=== PATIENT | female | born 1955 | race Caucasian/White ===

== ENCOUNTER 2018-08-18 14:30 | Inpatient (IN) | payer BC ==
--- NOTE | 2018-08-18 14:37 | PDOC ---
History of Present Illness - General Chief Complaint: Pain Stated Complaint: ABD PAIN, FEVER Time Seen by Provider: 08/18/18 14:36 Past History - Past Medical History Allergies/Adverse Reactions: Allergies Allergy/AdvReac Type Severity Reaction Status Date / Time No Known Allergies Allergy Verified 08/18/18 14:34 Home Medications: Ambulatory Orders NK [No Known Home Medication] 01/11/16 COPD: No - Surgical History Abdominal Surgery: Yes (hernia repair) Appendectomy: Yes Cholecystectomy: Yes - Suicide/Smoking/Psychosocial Hx Smoking History: Never smoked Have you smoked in the past 12 months: No Information on smoking cessation initiated: No Hx Alcohol Use: No Drug/Substance Use Hx: No Substance Use Type: None *Physical Exam - Vital Signs Last Vital Signs Temp Pulse Resp BP Pulse Ox 102.9 F H 118 H 18 155/87 99 08/18/18 14:30 08/18/18 14:30 08/18/18 14:30 08/18/18 14:30 08/18/18 14:30 *DC/Admit/Observation/Transfer - Discharge Dispostion Condition at time of disposition: Stable - Referrals Referrals: Cristopher Richards MD [Primary Care Provider] - - Patient Instructions - Post Discharge Activity
[2018-08-18] MEDS ORDERED: ACETAMINOPHEN 1000 MG/100 ML VIAL (NON FORMULARY) IVPB ONE ×2 (15:22→20:10)
[2018-08-18] MEDS ORDERED: ONDANSETRON 4 MG/2 ML VIAL IVPB ONE (15:22)
[2018-08-18] MEDS ORDERED: SODIUM CHLORIDE 1,000 ML IV STA (15:22)
[2018-08-18] MEDS ORDERED: ONDANSETRON 4 MG/2 ML VIAL ONE (15:25)
[2018-08-18] MEDS ORDERED: ACETAMINOPHEN INJECTION 100 ML IVPB ONE (15:25)
[2018-08-18 15:31] LABS: BASO % 0.6 % (0-2.0); EOS % 1.9 % (0-4.5); HEMATOCRIT 38.7 % (32.4-45.2); HEMOGLOBIN 12.7 GM/dl (10.7-15.3); LYMPH % 11.5 % (8-40); MCH 27.3 pg (25.7-33.7); MCHC 32.9 g/dl (32.0-36.0); MEAN CELL VOLUME 83.1 fl (80-96); MEAN PLT VOLUME 9.8 fl (7.5-11.1); MONO % 5.7 % (3.8-10.2); NEUT % 80.3 % (42.8-82.8); PLATELET COUNT 212 K/MM3 (134-434); RBC 4.65 M/mm3 (3.60-5.2); WHITE BLOOD COUNT 8.8 K/mm3 (4.0-10.8)
[2018-08-18 15:33] LABS: INR 1.11 (0.82-1.09); PROTHROMBIN TIME (PATIENT) 12.4 SEC (10.2-13.0)
[2018-08-18 16:31] LABS: ALBUMIN 3.7 g/dl (3.4-5.0); BLOOD UREA NITROGEN 13.4 mg/dL (7-18); CREATININE 0.9 mg/dL (0.55-1.3); POTASSIUM 3.9 mmol/L (3.5-5.1); TOT PROT 7.2 g/dl (6.4-8.2)
[2018-08-18] MEDS ORDERED: PIPERACILLIN/TAZOB 3.375 GM 3.375 GM in DEXTROSE 5%-WATER - 50 ML IVPB ONE (18:29)
[2018-08-18] MEDS ORDERED: PIPERACILLIN/TAZOBACTAM 3.375 GM VIAL IVPB ONE (18:32)
--- NOTE | 2018-08-18 18:32 | PDOC ---
Documentation entered by Kyung Srivastava SCRIBE, acting as scribe for Rio Orellana MD. Rio Orellana MD: This documentation has been prepared by the Atif rivas Brenda, SCRIBE, under my direction and personally reviewed by me in its entirety. I confirm that the documentation accurately reflects all work, treatment, procedures, and medical decision making performed by me. History of Present Illness - General Chief Complaint: Pain Stated Complaint: ABD PAIN, FEVER Time Seen by Provider: 08/18/18 14:36 History Source: Patient Exam Limitations: No Limitations - History of Present Illness Initial Comments: 08/18/18 15:21 The patient is a 63 year old female with a significant PMH of diverticulosis who presents to the emergency department with 3 days of lower abdominal pain. Patient reports she has developed sharp diffuse lower abdominal pain, that she described as something bursting inside of her. Patient also states having an episode last night of lower quadrant pain that woke her up out of her sleep with associated diaphoresis. Patient notes her abdominal pain is worsened during bowel movements. Patient also reports loose stools and states her last bowel movement was an hour prior to arrival to ED. She reports having a fever of 104.7 last night, where it decreased to 102.9 earlier today.. She also reports mild nausea when she smells greasy food. Patient reports taking 3 advils with slight relief of present symptoms. The patient denies chest pain, shortness of breath, headache and dizziness. Denies Vomiting, hematochezia and constipation.Denies dysuria, frequency, urgency and hematuria. Denies vaginal bleeding or discharge. Allergies: NKA Past surgical history: Cholecystectomy, appendectomy and . Social history: Denies history of tobacco and alcohol use PCP: Dr. Edson Richards Past History - Past Medical History Allergies/Adverse Reactions: Allergies Allergy/AdvReac Type Severity Reaction Status Date / Time No Known Allergies Allergy Verified 08/18/18 14:34 Home Medications: Ambulatory Orders NK [No Known Home Medication] 01/11/16 COPD: No - Surgical History Abdominal Surgery: Yes (hernia repair) Appendectomy: Yes Cholecystectomy: Yes - Suicide/Smoking/Psychosocial Hx Smoking History: Never smoked Have you smoked in the past 12 months: No Information on smoking cessation initiated: No Hx Alcohol Use: No Drug/Substance Use Hx: No Substance Use Type: None Review of Systems - Review of Systems Able to Perform ROS?: Yes Comments:: 08/18/18 15:21 CONSTITUTIONAL: + Fever + Diaphoresis Absent: generalized weakness, malaise, loss of appetite HEENT: Absent: rhinorrhea, nasal congestion, throat pain, throat swelling, difficulty swallowing, mouth swelling, ear pain, eye pain, visual Changes CARDIOVASCULAR: Absent: chest pain, syncope, palpitations, irregular heart rate, lightheadedness , peripheral edema RESPIRATORY: Absent: cough, shortness of breath, dyspnea with exertion, orthopnea, wheezing, stridor, hemoptysis GASTROINTESTINAL: +Abdominal pain + Nausea Absent: vomiting, constipation, melena, hematochezia GENITOURINARY: Absent: dysuria, frequency, urgency, hesitancy, hematuria, flank pain, genital pain MUSCULOSKELETAL: Absent: myalgia, arthralgia, joint swelling SKIN: Absent: rash, itching, pallor HEMATOLOGIC/IMMUNOLOGIC: Absent: easy bleeding, easy bruising, lymphadenopathy, frequent infections ENDOCRINE: Absent: unexplained weight gain, unexplained weight loss, heat intolerance, cold intolerance NEUROLOGIC: Absent: headache, focal weakness or paresthesias, dizziness, unsteady gait, seizure, mental status changes, bladder or bowel incontinence PSYCHIATRIC: Absent: anxiety, depression, suicidal or homicidal ideation, hallucinations. All Other Systems: Reviewed and Negative *Physical Exam - Vital Signs Last Vital Signs Temp Pulse Resp BP Pulse Ox 102.9 F H 118 H 18 155/87 99 08/18/18 14:30 08/18/18 14:30 08/18/18 14:30 08/18/18 14:30 08/18/18 14:30 - Physical Exam Comments: 08/18/18 15:21 GENERAL: + Mild to moderate distress due to abdominal pain + Temperature of 102.9 F Well developed, well nourished. Awake and alert. HEENT: Normocephalic, atraumatic. PERRLA, EOMI. No conjunctival pallor. Sclera are non- icteric. Moist mucous membranes. Oropharynx is clear. NECK: Supple. Full ROM. No JVD. Carotid pulses 2+ and symmetric, without bruits. No thyromegaly. No lymphadenopathy. CARDIOVASCULAR:+ Tachycardia at rate of 118 + Blood pressure at 155/87 Regular rhythm. No murmurs, rubs, or gallops. Distal pulses are 2+ and symmetric. PULMONARY: No evidence of respiratory distress. Lungs clear to auscultation bilaterally. No wheezing, rales or rhonchi. Normal respiratory rate and oxygen saturation ABDOMINAL: +Mild abdominal distention + mild to moderate tenderness to palpation in lower abdominal and pelvis, both left and right lower quadrants + Suggestion of guarding but no rebound tenderness Soft. No organomegaly. Normoactive bowel sounds. MUSCULOSKELETAL Normal range of motion at all joints. No bony deformities or tenderness. No CVA tenderness. EXTREMITIES: No cyanosis. No clubbing. No edema. No calf tenderness. SKIN: Warm and dry. Normal capillary refill. No rashes. No jaundice. NEUROLOGICAL: Alert, awake, appropriate. Cranial nerves 2-12 intact. No deficits to light touch and temperature in face, upper extremities and lower extremities. No motor deficits in the in face, upper extremities and lower extremities. Normoreflexic in the upper and lower extremities. Normal speech. Toes are down- going bilaterally. Gait is normal without ataxia. PSYCHIATRIC: Cooperative. Good eye contact. Appropriate mood and affect. ED Treatment Course - LABORATORY CBC & Chemistry Diagram: 08/18/18 15:00 08/18/18 15:00 - RADIOLOGY Radiology Studies Ordered: Category Date Time Status CHEST X-RAY PORTABLE* [RAD] Stat Radiology 08/18/18 14:38 Ordered Radiograph Interpretation: 08/18/18 15:57 RAD/CHEST X-RAY Impression: No acute chest pathology. Reported by: Tam Adams MD 08/18/18 18:25 CT ABDOMEN AND PELVIS WITH IV CONTRAST FINDINGS: Lower Chest: Within normal limits. Abdomen: Liver:: Moderate degree hepatic steatosis. Bile Ducts: Within normal limits. Gallbladder:: Within normal limits. Pancreas:: Within normal limits. Spleen:: Within normal limits. Adrenals: Within normal limits. Kidneys: No evidence of hydronephrosis or nephrolithiasis. Incidental note is made of a 3.2 x 2.3 cm ill-defined hypoattenuating lesion arising from the right kidney, likely represents a renal cyst. However, recommend further evaluation with dedicated renal ultrasound and/or renal protocol renal MRI to exclude neoplastic process. Stomach:: Small sliding hiatal hernia. Bowel:: Acute diverticulitis of the distal descending/sigmoid colon without evidence of pericolonic fluid collection or abscess at this time. Recommend follow-up to resolution to exclude underlying mass. No evidence of small bowel obstruction or mass. The appendix is not confidently identified. However, there is no secondary inflammatory changes in the right lower quadrant near the cecum to suggest acute appendicitis. Pelvis: Reproductive Organs: Within normal limits. Bladde: Within normal limits. Vessels: Aorta: Within the normal limits without aneurysm or dissection. Retroperitoneum: Within normal limits. Bones: : No suspicious osseous lesions. Reported by: Imaging taxation inspector Medical Decision Making - Medical Decision Making 08/18/18 14:53 Patient with lower abdominal pain for 3 days, temperature to 104 last night, persistent fever today. No appreciable nausea. No vomiting. Normal bowel movements today. Holding down food and fluids without difficulty. No urinary tract symptoms or vaginal bleeding/discharge. Normal PERSONAL CONSULTANT exam by her mail technician 2 weeks ago. Prior surgery including cholecystectomy, appendectomy, and the drainage of the renal cyst on the right. All of these many years ago. No [place] illnesses. No home medications. Examination with diffuse lower abdominal tenderness, suggestion of guarding, but no rebound. Most likely is acute diverticulitis, possibly with perforation or abscess, or bowel obstruction secondary to prior surgeries Laboratories and imaging studies, surgical consultation as dictated by findings. 08/18/18 16:56 CBC, chemistries, and urinalysis show no significant abnormalities. Specifically , the white count is 8.8. Electrolytes, LFTs are normal. 08/18/18 18:30 CT exam shows acute diverticulitis left lower quadrant, no abscess or perforation is evident. However, with the fever to 104 last night, 102 today, distended abdomen, and suggestion of guarding, patient will be admitted for close observation and intravenous antibiotics. PCP Dr. Richards contacted by phone. Case was discussed. Recommends admission to the hospitalist service with surgical consultation The hospitalist contacted. Intravenous antibiotics begun. Surgical consultation Dr. Castellanos. Patient clinically and hemodynamically stable at present. Pain is controlled. *DC/Admit/Observation/Transfer Diagnosis at time of Disposition: Acute diverticulitis - Discharge Dispostion Decision to Admit order: Yes - Referrals Referrals: Cristopher Richards MD [Primary Care Provider] - - Patient Instructions - Post Discharge Activity
[2018-08-18] MEDS ORDERED: SODIUM CHLORIDE 1,000 ML IV SCH (18:45)
--- NOTE | 2018-08-18 18:46 | CONSULT ---
Consult Consult Specialty:: General Surgery Reason for Consultation:: acute diverticulitis - History of Present Illness Chief Complaint: abdominal pain History of Present Illness: 63 yo female PMH obesity, diverticulosis who presents to the emergency department with 3 days of lower abdominal pain described as sharp. Patient reported abdominal pain was worse during bowel movements. Patient also reports loose stools and states her last bowel movement was an hour prior to arrival to ED. She reports she had a fever of 104.7 last night, where it decreased to 102.9 earlier today. She also reports mild nausea when she smells greasy food. Patient reports taking 3 advils with slight relief of present symptoms. She denied chest pain, shortness of breath, headache, dizziness, vomiting, hematochezia and constipation. UA was negative. She has tachycardia and BP is slightly elevated. CT scan of abdomen demonstrataed acute diverticulitis. She was given a dose of IV Tylenol which improved her abdominal pain and IV zosyn. She is currently NPO and IV fluids. We were called to assess. - History Source History Provided By: Patient Limitations to Obtaining History: No Limitations - Past Medical History Gastrointestinal: Yes: Diverticulitis Additional Medical History: obesity - Alcohol/Substance Use Hx Alcohol Use: No - Smoking History Smoking history: Never smoked Have you smoked in the past 12 months: No - Social History Place of : [facility] History of Recent Travel: No Home Medications - Allergies Allergies/Adverse Reactions: Allergies Allergy/AdvReac Type Severity Reaction Status Date / Time No Known Allergies Allergy Verified 08/18/18 14:34 - Home Medications Home Medications: Ambulatory Orders NK [No Known Home Medication] 01/11/16 Review of Systems - Review of Systems Constitutional: reports: Fever. denies: Chills Eyes: denies: Blind Spots, Photophobia HENT: denies: Difficult Swallowing, Ocular Prosthesis Neck: denies: Lumps, Pain on Movement, Swollen Glands Cardiovascular: denies: Chest Pain, Palpitations Respiratory: denies: Cough, SOB Gastrointestinal: reports: Abdominal Pain, Bloating, Constipation. denies: Diarrhea Genitourinary: denies: Discharge, Dysuria Breasts: reports: No Symptoms Reported. denies: Pain Musculoskeletal: denies: Muscle Cramps, Muscle Weakness Integumentary: denies: Pallor, Pruritis Neurological: denies: Seizure, Syncope Endocrine: denies: Unexplained Weight Gain, Unexplained Weight Loss Hematology/Lymphatic: denies: Easily Bruised, Excessive Bleeding Psychiatric: denies: Anxiety, Depression Physical Exam Vital Signs: Vital Signs Temperature 98.8 F 08/18/18 16:29 Pulse Rate 82 08/18/18 16:29 Respiratory Rate 16 08/18/18 16:29 Blood Pressure 112/75 08/18/18 16:29 O2 Sat by Pulse Oximetry (%) 99 08/18/18 16:29 Constitutional: Yes: Well Nourished, No Distress, Calm, Obese Eyes: Yes: Conjunctiva Clear, EOM Intact HENT: Yes: Atraumatic, Normocephalic Neck: Yes: Supple, Trachea Midline Cardiovascular: Yes: Regular Rate and Rhythm, S1, S2 Respiratory: Yes: Regular, CTA Bilaterally Gastrointestinal: Yes: Normal Bowel Sounds, Soft, Tenderness (LLQ), Tenderness, Rebound. No: Palpable Mass, Pulsatile Mass, Rectal Bleeding, Tenderness, Epigastrium ...Rectal Exam: Yes: Sphincter Tone Normal. No: Erythema, Hemorrhoids/External Renal/: No: CVA Tenderness - Left, CVA Tenderness - Right Breast(s): No: Gynecomastia, Nipple Inversion Extremities: No: Cool, Cyanosis Edema: No Peripheral Pulses WNL: Yes Neurological: Yes: Alert, Oriented Psychiatric: Yes: Alert, Oriented Labs: CBC, BMP 08/18/18 15:00 08/18/18 15:00 Imaging - Results Cat Scan: Report Reviewed, Image Reviewed (uncomplicated sigmoid diverticulitis and inflamation without abscess) Problem List - Problems (1) Sigmoid diverticulitis Assessment/Plan: 63yo female with first episode of acute sigmoid diverticulitis uncomplicated NPo and IVF hydration IV antibiotics per ID adequat analgesia advance diet as tolerated GI followup for colonoscopy in 6-8 weeks post episode Will follow periperhally Thank you for the opportunity to participate in the care of this patient. Code(s): K57.32 - DVTRCLI OF LG INT W/O PERFORATION OR ABSCESS W/O BLEEDING (2) Abdominal pain in female Code(s): R10.9 - UNSPECIFIED ABDOMINAL PAIN (3) Fever and chills Code(s): R50.9 - FEVER, UNSPECIFIED (4) Acute diverticulitis of intestine Code(s): K57.92 - DVTRCLI OF INTEST, PART UNSP, W/O PERF OR ABSCESS W/O BLEED
[2018-08-18] MEDS ORDERED: PIPERACILLIN/TAZOBACTAM 2.25 GM VIAL IVPB ONE (20:42)
[2018-08-18] MEDS ORDERED: DEXTROSE 5%-WATER - 50 ML IVPB ONE (20:42)
[2018-08-18] MEDS ORDERED: PIPERACILLIN/TAZOB 2.25 GM 2.25 GM in DEXTROSE 5%-WATER - 50 ML IVPB SCH (21:00)
[2018-08-18 21:10] VITALS: BMI 31.8
--- NOTE | 2018-08-18 21:11 | HP ---
CHIEF COMPLAINT: abdominal pain to lower quadrant for 3 days associated with nausea and fever PCP:Dr. Richards HISTORY OF PRESENT ILLNESS: This is a 63 year old female with a past medical history of diverticulosis who presents to the emergency department with 3 days of lower abdominal pain described as sharp. Patient reported abdominal pain was worse during bowel movements. Patient also reports loose stools and states her last bowel movement was an hour prior to arrival to ED. She reports she had a fever of 104.7 last night, where it decreased to 102.9 earlier today. She also reports mild nausea when she smells greasy food. Patient reports taking 3 advils with slight relief of present symptoms. She denied chest pain, shortness of breath, headache, dizziness, vomiting, hematochezia and constipation. UA was negative. She has tachycardia and BP is slightly elevated. CT scan of abdomen demonstrataed acute diverticulitis. She was given a dose of IV Tylenol which improved her abdominal pain and IV zosyn. She is currently NPO and IV fluids NS at 75cc/hr are infusing. Recent Travel: denies PAST MEDICAL HISTORY: diverticulosis PAST SURGICAL HISTORY: [id number] Appendectomy 15 years ago Social History: Smoking:denies Alcohol:denies Drugs: denies Family History:noncontributory Allergies No Known Allergies Allergy (Verified 08/18/18 14:34) HOME MEDICATIONS: Home Medications Medication Instructions Recorded NK [No Known Home Medication] 01/11/16 REVIEW OF SYSTEMS CONSTITUTIONAL: Absent: fever, chills, diaphoresis, generalized weakness, malaise, loss of appetite, weight change HEENT: Absent: rhinorrhea, nasal congestion, throat pain, throat swelling, difficulty swallowing, mouth swelling, ear pain, eye pain, visual changes CARDIOVASCULAR: Absent: chest pain, syncope, palpitations, irregular heart rate, lightheadedness , peripheral edema RESPIRATORY: Absent: cough, shortness of breath, dyspnea with exertion, orthopnea, wheezing, stridor, hemoptysis GASTROINTESTINAL: Absent: abdominal pain, abdominal distension, nausea, vomiting, diarrhea, constipation, melena, hematochezia, loose stools GENITOURINARY: Absent: dysuria, frequency, urgency, hesitancy, hematuria, flank pain, genital pain MUSCULOSKELETAL: Absent: myalgia, arthralgia, joint swelling, back pain, neck pain SKIN: Absent: rash, itching, pallor HEMATOLOGIC/IMMUNOLOGIC: Absent: easy bleeding, easy bruising, lymphadenopathy, frequent infections ENDOCRINE: Absent: unexplained weight gain, unexplained weight loss, heat intolerance, cold intolerance NEUROLOGIC: Absent: headache, focal weakness or paresthesias, dizziness, unsteady gait, seizure, mental status changes, bladder or bowel incontinence PSYCHIATRIC: Absent: anxiety, depression, suicidal or homicidal ideation, hallucinations. PHYSICAL EXAMINATION Vital Signs - 24 hr 08/18/18 08/18/18 08/18/18 14:30 16:29 20:00 Temperature 102.9 F H 98.8 F 99 F Pulse Rate 118 H Pulse Rate [ 82 87 Left Apical] Respiratory 18 16 16 Rate Blood Pressure 155/87 Blood Pressure 112/75 119/54 L [Left Arm] O2 Sat by Pulse 99 99 96 Oximetry (%) GENERAL: awake, alert, and fully oriented no acute distress HEAD: normal with no signs of trauma EYES: pupils equal, round and reactive to light EARS, NOSE, THROAT: ears normal, nares patent NECK: normal range of motion supple LUNGS: clear to auscultation bilaterally no wheezing no crackles no accessory muscle use HEART: Regular and tachycardic, normal S1 and S2 ABDOMEN: tender lower abdomen and suprapubic region , no acute abdomen MUSCULOSKELETAL: normal range of motion UPPER EXTREMITIES: 2+ pulses, warm well-perfused no cyanosis LOWER EXTREMITIES: 2+ pulses warm well-perfused NEUROLOGICAL: normal speech no focal deficits PSYCHIATRIC: cooperative and appropriate mood SKIN: warm dry normal turgor no rashes or lesions noted normal capillary refill Laboratory Results - last 24 hr 08/18/18 08/18/18 08/18/18 15:00 15:00 15:00 WBC 8.8 RBC 4.65 Hgb 12.7 Hct 38.7 MCV 83.1 MCH 27.3 MCHC 32.9 RDW 13.0 Plt Count 212 MPV 9.8 Absolute Neuts (auto) 7.0 Neutrophils % 80.3 Lymphocytes % 11.5 Monocytes % 5.7 Eosinophils % 1.9 Basophils % 0.6 PT with INR 12.4 INR 1.11 Sodium 138 Potassium 3.9 Chloride 101 Carbon Dioxide 29 Anion Gap 8 BUN 13.4 Creatinine 0.9 Est GFR (CKD-EPI)AfAm 79.42 Est GFR (CKD-EPI)NonAf 68.53 Random Glucose 179 H Lactic Acid Calcium 9.0 Total Bilirubin 1.0 AST 13 L ALT 23 Alkaline Phosphatase 68 Creatine Kinase 80 Troponin I Total Protein 7.2 Albumin 3.7 Urine Color Urine Appearance Urine pH Urine Protein Urine Glucose (UA) Urine Ketones Urine Blood Urine Nitrite Urine Bilirubin Urine Urobilinogen Ur Leukocyte Esterase 08/18/18 08/18/18 08/18/18 15:00 15:00 15:00 WBC RBC Hgb Hct MCV MCH MCHC RDW Plt Count MPV Absolute Neuts (auto) Neutrophils % Lymphocytes % Monocytes % Eosinophils % Basophils % PT with INR INR Sodium Potassium Chloride Carbon Dioxide Anion Gap BUN Creatinine Est GFR (CKD-EPI)AfAm Est GFR (CKD-EPI)NonAf Random Glucose Lactic Acid 2.0 Calcium Total Bilirubin AST ALT Alkaline Phosphatase Creatine Kinase Troponin I < 0.03 Total Protein Albumin Urine Color Yellow Urine Appearance Clear Urine pH 6.0 Urine Protein Negative Urine Glucose (UA) Negative Urine Ketones Negative Urine Blood Negative Urine Nitrite Negative Urine Bilirubin Negative Urine Urobilinogen 0.2 Ur Leukocyte Esterase Negative ASSESSMENT/PLAN: 63 year old female with a past medical history significant for diverticulosis who presents with symptoms of lower abdominal pain described as sharp ongoing for 3 days associated with nausea and fever. UA was negative. CT scan of abdomen demonstrated acute diverticulitis. #1 Acute Diverticulitis/Fever Currenly afebrile, tachycardic, WBC and lactic acid normal. - NPO - IVF NS at 75 cc/hr - General Surgery- Dr. Akhtar consulted - Continue with IV Zosyn - ID consulted- Dr. Ventura consulted - Continue with IV Tylenol as needed for pain FEN NPO, IVF at 75cc/hr, monitor electrolytes closely DVT SCD's Visit type - Emergency Visit Emergency Visit: Yes ED Registration Date: 08/18/18 Care time: The patient presented to the Emergency Department on the above date and was hospitalized for further evaluation of their emergent condition. - New Patient This patient is new to me today: Yes Date on this admission: 08/18/18 - Critical Care Critical Care patient: No
[2018-08-18] MEDS: PIPERACILLIN/TAZOB 2.25 GM 2.25 GM in DEXTROSE 5%-WATER - 50 ML IVPB SCH (21:22)
[2018-08-18] MEDS: SODIUM CHLORIDE 1,000 ML IV SCH (22:30)
[2018-08-19] MEDS ORDERED: PIPERACILLIN/TAZOBACTAM 2.25 GM VIAL IVPB ONE ×2 (02:12→08:56)
[2018-08-19] MEDS ORDERED: DEXTROSE 5%-WATER - 50 ML IVPB ONE ×2 (02:12→08:56)
[2018-08-19] MEDS: PIPERACILLIN/TAZOB 2.25 GM 2.25 GM in DEXTROSE 5%-WATER - 50 ML IVPB SCH ×2 (02:24→09:00)
[2018-08-19 07:54] LABS: HEMATOCRIT 33.6 % (32.4-45.2); MCH 27.6 pg (25.7-33.7); MCHC 32.8 g/dl (32.0-36.0); MEAN PLT VOLUME 9.7 fl (7.5-11.1); PLATELET COUNT 171 K/MM3 (134-434); RDW 13.5 % (11.6-15.6); WHITE BLOOD COUNT 6.5 K/mm3 (4.0-10.8)
[2018-08-19 08:44] LABS: BLOOD UREA NITROGEN 9.8 mg/dL (7-18); CREATININE 0.8 mg/dL (0.55-1.3)
--- NOTE | 2018-08-19 10:33 | PN ---
Progress Note (short form) - Note Progress Note: ID CONSULT DICTATED ACUTE UNCOMPLICATED SIGMOID DIVERTICULITIS FEVER R/O SEPSIS SECONDARY TO GI SOURCE AWAIT C/S CONTINUE EMPIRIC ZOSYN
--- NOTE | 2018-08-19 11:26 | PN ---
Physical Exam: SUBJECTIVE: Patient seen and examined at bedside. Lower mid abdominal pain with movement and with BMs and passing gas. OBJECTIVE: Vital Signs Period Temp Pulse Resp BP Sys/Arora Pulse Ox Last 24 Hr 98.8 F-102.9 F 78-118 16-19 104-155/54-87 96-99 GENERAL: The patient is awake, alert, and fully oriented, in no acute distress. LUNGS: Breath sounds equal, clear to auscultation bilaterally, no wheezes, no crackles, no accessory muscle use. HEART: Regular rate and rhythm, S1, S2 without murmur, rub or gallop. ABDOMEN: Mild diffuse tenderness EXTREMITIES: 2+ pulses, warm, well-perfused, no edema. NEUROLOGICAL: Cranial nerves II through XII grossly intact. Normal speech, gait not observed. Easily repositions. Laboratory Results - last 24 hr 08/18/18 08/18/18 08/18/18 15:00 15:00 15:00 WBC 8.8 RBC 4.65 Hgb 12.7 Hct 38.7 MCV 83.1 MCH 27.3 MCHC 32.9 RDW 13.0 Plt Count 212 MPV 9.8 Absolute Neuts (auto) 7.0 Neutrophils % 80.3 Lymphocytes % 11.5 Monocytes % 5.7 Eosinophils % 1.9 Basophils % 0.6 PT with INR 12.4 INR 1.11 Sodium 138 Potassium 3.9 Chloride 101 Carbon Dioxide 29 Anion Gap 8 BUN 13.4 Creatinine 0.9 Est GFR (CKD-EPI)AfAm 79.42 Est GFR (CKD-EPI)NonAf 68.53 Random Glucose 179 H Lactic Acid Calcium 9.0 Total Bilirubin 1.0 AST 13 L ALT 23 Alkaline Phosphatase 68 Creatine Kinase 80 Troponin I Total Protein 7.2 Albumin 3.7 Urine Color Urine Appearance Urine pH Urine Protein Urine Glucose (UA) Urine Ketones Urine Blood Urine Nitrite Urine Bilirubin Urine Urobilinogen Ur Leukocyte Esterase 08/18/18 08/18/18 08/18/18 15:00 15:00 15:00 WBC RBC Hgb Hct MCV MCH MCHC RDW Plt Count MPV Absolute Neuts (auto) Neutrophils % Lymphocytes % Monocytes % Eosinophils % Basophils % PT with INR INR Sodium Potassium Chloride Carbon Dioxide Anion Gap BUN Creatinine Est GFR (CKD-EPI)AfAm Est GFR (CKD-EPI)NonAf Random Glucose Lactic Acid 2.0 Calcium Total Bilirubin AST ALT Alkaline Phosphatase Creatine Kinase Troponin I < 0.03 Total Protein Albumin Urine Color Yellow Urine Appearance Clear Urine pH 6.0 Urine Protein Negative Urine Glucose (UA) Negative Urine Ketones Negative Urine Blood Negative Urine Nitrite Negative Urine Bilirubin Negative Urine Urobilinogen 0.2 Ur Leukocyte Esterase Negative 08/19/18 08/19/18 07:08 07:08 WBC 6.5 RBC 4.00 Hgb 11.0 Hct 33.6 MCV 84.0 MCH 27.6 MCHC 32.8 RDW 13.5 Plt Count 171 MPV 9.7 Absolute Neuts (auto) Neutrophils % Lymphocytes % Monocytes % Eosinophils % Basophils % PT with INR INR Sodium 140 Potassium 4.0 Chloride 107 Carbon Dioxide 28 Anion Gap 5 L BUN 9.8 Creatinine 0.8 Est GFR (CKD-EPI)AfAm 91.58 Est GFR (CKD-EPI)NonAf 79.01 Random Glucose 139 H Lactic Acid Calcium 8.0 L Total Bilirubin AST ALT Alkaline Phosphatase Creatine Kinase Troponin I Total Protein Albumin Urine Color Urine Appearance Urine pH Urine Protein Urine Glucose (UA) Urine Ketones Urine Blood Urine Nitrite Urine Bilirubin Urine Urobilinogen Ur Leukocyte Esterase Active Medications Generic Name Dose Route Start Last Admin Trade Name Freq PRN Reason Stop Dose Admin Sodium Chloride 1,000 mls @ 75 mls/hr 08/18/18 21:12 08/18/18 22:30 Normal Saline - IV 75 mls/hr ASDIR PAPI Administration Piperacillin Sod/Tazobactam 100 mls @ 200 mls/hr 08/19/18 15:00 Sod 4.5 gm/ Dextrose IVPB Q8H [facility] Protocol ASSESSMENT/PLAN 63 year-old female with a PMH significant for diverticulosis and s/p multiple abdominal surgeries (cholecystectomy, appendectomy, ), admitted for acute diverticulitis. Acute sigmoid diverticulitis --seen on CT scan, no evidence of abscess formation --febrile 102.9 on admission, no leukocytosis --empiric Zosyn (day #1) --cultures pending --ID following FEN Fluids: NS @ 75mL/hr Electrolytes: replete as indicated Nutrition: NPO DVT prophylaxis: subq lovenox, oob, ambulation Dispo: continues to require inpatient care. Full code. Visit type - Emergency Visit Emergency Visit: Yes ED Registration Date: 08/18/18 Care time: The patient presented to the Emergency Department on the above date and was hospitalized for further evaluation of their emergent condition. - New Patient This patient is new to me today: Yes Date on this admission: 08/19/18 - Critical Care Critical Care patient: No
--- NOTE | 2018-08-19 11:48 | EKG ---
Test Reason : Blood Pressure : / mmHG Vent. Rate : 100 BPM Atrial Rate : 100 BPM P-R Int : 140 ms QRS Dur : 080 ms QT Int : 326 ms P-R-T Axes : 033 025 026 degrees QTc Int : 420 ms NORMAL SINUS RHYTHM NORMAL ECG WHEN COMPARED WITH ECG OF 06-JUL-2004 09:41, NO SIGNIFICANT CHANGE WAS FOUND Confirmed by ELAINE MORGAN MD ([id number]) on 08/19/2018 11:48:03 AM Referred By: KIANNA CUADRA Confirmed By:ELAINE MORGAN MD
[2018-08-19] MEDS: ENOXAPARIN NA (PORCINE) 40 MG/0.4 ML DISP.SYRIN SQ SCH ×2 (12:00)
--- NOTE | 2018-08-19 13:27 | CONS ---
DATE OF CONSULTATION: DATE OF DICTATION: 08/19/2018 Infectious disease consultation HISTORY: The patient is a 63-year-old female evaluated for acute diverticulitis. The patient reports being well until the evening of August 17. She had developed bilateral lower abdominal pain after dinner. She reports that the pain became progressively worse and was associated with fever to 104 and diaphoresis. She reports that the pain was exacerbated by bowel movement. The patient continued to have loose, nonbloody bowel movements. She presented to the emergency room where she was evaluated. She was found to have a fever of 102.9. Physical exam revealed bilateral lower abdominal tenderness. A CAT scan of the abdomen and pelvis was obtained and showed thickening and irregularity of the proximal sigmoid colon with inflammatory changes in the adjacent mesenteric fat consistent with acute diverticulitis. Free fluid was noted without a discrete fluid collection suspicious for abscess. No evidence of perforation. She was admitted to the hospital. Empirically treated with Zosyn. At the present time, she continues to complain of bilateral lower quadrant abdominal pain. She continues to have loose, nonbloody bowel movements. No complaints of nausea or vomiting. PAST MEDICAL HISTORY: Positive for diverticulosis diagnosed on colonoscopy. No prior history of diverticulitis. PAST SURGICAL HISTORY: Includes cholecystectomy, appendectomy, section, hernia repair. ALLERGIES: No known allergies. MEDICATIONS: Tylenol, Zosyn, Zofran. SOCIAL HISTORY: She resides at home in the community with her . She is a nonsmoker, nondrinker. SYSTEMS REVIEW: Neurologic: No loss of consciousness, seizure activity, or focal weakness. Cardiac: Negative chest pain or palpitations. Respiratory: Negative cough or sputum production. Gastrointestinal: As per HPI. Genitourinary: Negative for urinary tract infection. LABORATORY DATA: White count 6.5, hematocrit 33.6, platelets 171, creatinine 0.8. Blood and urine cultures pending. Urinalysis negative. Chest x-ray negative. PHYSICAL EXAMINATION: General: On exam, she is awake and alert. Supine in bed in no acute distress. Vital Signs: Temperature 99.3, maximum temperature 102.9, blood pressure 117/61, pulse 81 regular, respirations 16 per minute. HEENT: Sclerae anicteric. Heart: Sounds S1, S2. Lungs: Clear bilaterally. Abdomen: Positive bowel sounds. Extremities: Bilateral lower extremity tenderness to palpation. No palpable mass. No rebound or rigidity. Extremities negative for edema. Negative for Homans sign. IMPRESSION: 1. Acute, uncomplicated sigmoid diverticulitis. 2. Fever, rule out sepsis secondary to gastrointestinal source. PLAN: Await cultures. Surgery evaluation. Continue empiric coverage GI pathogens with Zosyn 4.5 g IV piggyback every 8 hours. Analgesics. IV fluid hydration. We will follow. Thank you for the kind referral. KIMMY ANTONIO M.D. [id number]
[2018-08-19] MEDS ORDERED: DEXTROSE 5%-WATER 200 ML IVPB ONE (13:56)
[2018-08-19] MEDS ORDERED: PIPERACILLIN/TAZOBACTAM 4.5 GM VIAL IVPB ONE ×2 (13:57→23:23)
[2018-08-19] MEDS: PIPERACILLIN/TAZOB 4.5 GM 4.5 GM in DEXTROSE 5%-WATER 100 ML IVPB SCH ×2 (14:15→23:41)
[2018-08-19] MEDS ORDERED: ACETAMINOPHEN/CAFFEINE/BUTALBITAL 1 TAB PO PRN (14:22)
[2018-08-19] MEDS: SODIUM CHLORIDE 1,000 ML IV SCH (21:32)
[2018-08-19] MEDS ORDERED: DEXTROSE 5%-WATER 100 ML IVPB ONE (23:22)
[2018-08-20] MEDS ORDERED: DEXTROSE 5%-WATER 100 ML IVPB ONE ×3 (06:01→21:01)
[2018-08-20] MEDS ORDERED: PIPERACILLIN/TAZOBACTAM 4.5 GM VIAL IVPB ONE ×3 (06:01→21:01)
[2018-08-20] MEDS: PIPERACILLIN/TAZOB 4.5 GM 4.5 GM in DEXTROSE 5%-WATER 100 ML IVPB SCH ×3 (06:21→23:04)
[2018-08-20 07:57] LABS: BASO % 0.5 % (0-2.0); EOS % 6.1 % (0-4.5); HEMATOCRIT 33.8 % (32.4-45.2); HEMOGLOBIN 11.1 GM/dl (10.7-15.3); LYMPH % 30.1 % (8-40); MCH 27.5 pg (25.7-33.7); MCHC 32.8 g/dl (32.0-36.0); MEAN CELL VOLUME 83.9 fl (80-96); MEAN PLT VOLUME 9.2 fl (7.5-11.1); MONO % 8.5 % (3.8-10.2); NEUT % 54.8 % (42.8-82.8); PLATELET COUNT 174 K/MM3 (134-434); RBC 4.03 M/mm3 (3.60-5.2); RDW 12.9 % (11.6-15.6); WHITE BLOOD COUNT 4.2 K/mm3 (4.0-10.8)
[2018-08-20] MEDS: ENOXAPARIN NA (PORCINE) 40 MG/0.4 ML DISP.SYRIN SQ SCH (09:13)
[2018-08-20 09:29] LABS: ALBUMIN 3.2 g/dl (3.4-5.0); BILIRUBIN,TOTAL 0.9 mg/dL (0.2-1); BLOOD UREA NITROGEN 8.4 mg/dL (7-18); CALCIUM 8.2 mg/dL (8.5-10.1); CREATININE 0.7 mg/dL (0.55-1.3); MAGNESIUM 2.2 mg/dL (1.8-2.4); POTASSIUM 3.9 mmol/L (3.5-5.1); TOT PROT 6.2 g/dl (6.4-8.2)
--- NOTE | 2018-08-20 09:45 | PN ---
Progress Note, Physician Chief Complaint: abdominal pain History of Present Illness: 63 yo female PMH obesity, diverticulosis who presents to the emergency department with 3 days of lower abdominal pain described as sharp. Patient reported abdominal pain was worse during bowel movements. Pain has improved since admission. - Current Medication List Current Medications: Active Medications Acetaminophen/Butalbital/Caffeine (Fioricet -) 1 tablet PO Q4H PRN PRN Reason: HEADACHE Last Admin: 08/19/18 14:27 Dose: 1 tablet Enoxaparin Sodium (Lovenox -) 40 mg SQ DAILY PAPI Last Admin: 08/20/18 09:13 Dose: Not Given Sodium Chloride (Normal Saline -) 1,000 mls @ 75 mls/hr IV ASDIR PAPI Last Admin: 08/19/18 21:32 Dose: 75 mls/hr Piperacillin Sod/Tazobactam (Sod 4.5 gm/ Dextrose) 100 mls @ 200 mls/hr IVPB Q8H [facility]; Protocol Last Admin: 08/20/18 06:21 Dose: 200 mls/hr - Objective Vital Signs: Vital Signs Temperature 98.3 F 08/20/18 06:50 Pulse Rate 78 08/20/18 06:50 Respiratory Rate 18 08/20/18 06:50 Blood Pressure 116/62 08/20/18 06:50 O2 Sat by Pulse Oximetry (%) 100 08/20/18 06:50 Vital Signs Period Temp Pulse Resp BP Sys/Arora Pulse Ox Last 24 Hr 97.8 F-98.5 F 73-78 16-18 106-127/62-68 97-100 Intake & Output 08/19/18 08/20/18 08/20/18 23:59 07:59 15:59 Intake Total 300 600 Balance 300 600 Intake: IV 300 500 Normal Saline - 1,000 ml 300 500 @ 75 mls/hr IV ASDIR PAPI Rx#:[id number] IVPB 100 Oral 0 Other: Voiding Method Toilet Toilet Toilet # Unmeasured Voids Void 1 2 Bowel Movement No Constitutional: Yes: Well Nourished, No Distress, Calm, Obese Eyes: Yes: Conjunctiva Clear, EOM Intact HENT: Yes: Atraumatic, Normocephalic Neck: Yes: Supple, Trachea Midline Cardiovascular: Yes: Regular Rate and Rhythm, S1, S2 Respiratory: Yes: Regular, CTA Bilaterally Gastrointestinal: Yes: Normal Bowel Sounds, Soft, Abdomen, Obese, Tenderness. No: Tenderness, Epigastrium, Tenderness, Rebound, Vomiting ...Rectal Exam: Yes: Deferred Genitourinary: No: CVA Tenderness - Left, CVA Tenderness - Right Breast(s): No: Breast Implants, Nipple Inversion Musculoskeletal: No: Joint Stiffness, Joint Swelling, Muscle Pain Extremities: No: Cool, Cyanosis Edema: No Peripheral Pulses WNL: Yes Peripheral Pulses: Left Radial: 2+, Right Radial: 2+, Left Doralis Pedis: 2+, Right Dorsalis Pedis: 2+, Left Femoral: 2+, Right Femoral: 2+ Integumentary: No: Incision, Jaundice Neurological: Yes: Alert, Oriented Psychiatric: Yes: Alert, Oriented Labs: CBC, BMP 08/20/18 07:21 08/20/18 07:21 INR, PTT INR 1.11 (0.82-1.09) 08/18/18 15:00 Problem List - Problems (1) Sigmoid diverticulitis Assessment/Plan: 63yo female with first episode of acute sigmoid diverticulitis uncomplicated, abdominal improved no BM IVF hydration clear liquid diet advance diet as tolerated IV antibiotics per ID adequate analgesia GI followup for colonoscopy in 6-8 weeks post episode Discharge at the discretion of the primary team Thank you for the opportunity to participate in the care of this patient. Code(s): K57.32 - DVTRCLI OF LG INT W/O PERFORATION OR ABSCESS W/O BLEEDING (2) Abdominal pain in female Code(s): R10.9 - UNSPECIFIED ABDOMINAL PAIN (3) Fever and chills Code(s): R50.9 - FEVER, UNSPECIFIED (4) Acute diverticulitis of intestine Code(s): K57.92 - DVTRCLI OF INTEST, PART UNSP, W/O PERF OR ABSCESS W/O BLEED
--- NOTE | 2018-08-20 09:58 | PN ---
Progress Note, Physician History of Present Illness: REPORTS IMPROVEMENT IN ABDOMINAL PAIN + LOOSE, NON BLOODY BM NO C/O N/V NO F/C AFEBRILE WBC WNL C/S NO GROWTH - Current Medication List Current Medications: Active Medications Acetaminophen/Butalbital/Caffeine (Fioricet -) 1 tablet PO Q4H PRN PRN Reason: HEADACHE Last Admin: 08/19/18 14:27 Dose: 1 tablet Enoxaparin Sodium (Lovenox -) 40 mg SQ DAILY PAPI Last Admin: 08/20/18 09:13 Dose: Not Given Sodium Chloride (Normal Saline -) 1,000 mls @ 75 mls/hr IV ASDIR PAPI Last Admin: 08/19/18 21:32 Dose: 75 mls/hr Piperacillin Sod/Tazobactam (Sod 4.5 gm/ Dextrose) 100 mls @ 200 mls/hr IVPB Q8H [facility]; Protocol Last Admin: 08/20/18 06:21 Dose: 200 mls/hr - Objective Vital Signs: Vital Signs Temperature 98.3 F 08/20/18 06:50 Pulse Rate 78 08/20/18 06:50 Respiratory Rate 18 08/20/18 06:50 Blood Pressure 116/62 08/20/18 06:50 O2 Sat by Pulse Oximetry (%) 100 08/20/18 06:50 Constitutional: Yes: No Distress Eyes: Yes: Conjunctiva Clear Cardiovascular: Yes: Regular Rate and Rhythm, S1, S2 Respiratory: Yes: CTA Bilaterally Gastrointestinal: Yes: Normal Bowel Sounds, Soft. No: Tenderness Labs: CBC, BMP 08/20/18 07:21 08/20/18 07:21 INR, PTT INR 1.11 (0.82-1.09) 08/18/18 15:00 Assessment/Plan ACUTE UNCOMPLICATED DIVERTICULITIS CONTINUE EMPIRIC ZOSYN ADVANCE DIET
[2018-08-20] MEDS: SODIUM CHLORIDE 1,000 ML IV SCH ×2 (12:09→23:06)
--- NOTE | 2018-08-20 12:27 | PN ---
Physical Exam: SUBJECTIVE: Patient seen and examined. Feeling better. Abdominal pain has resolved. OBJECTIVE: Vital Signs Period Temp Pulse Resp BP Sys/Arora Pulse Ox Last 24 Hr 97.8 F-98.5 F 73-78 16-18 106-127/62-68 97-100 GENERAL: The patient is awake, alert, and fully oriented, in no acute distress. LUNGS: Breath sounds equal, clear to auscultation bilaterally, no wheezes, no crackles, no accessory muscle use. HEART: Regular rate and rhythm, S1, S2 without murmur, rub or gallop. ABDOMEN: Mild diffuse tenderness EXTREMITIES: 2+ pulses, warm, well-perfused, no edema. NEUROLOGICAL: Cranial nerves II through XII grossly intact. Normal speech, gait not observed. Easily repositions. Laboratory Results - last 24 hr 08/20/18 08/20/18 07:21 07:21 WBC 4.2 RBC 4.03 Hgb 11.1 Hct 33.8 MCV 83.9 MCH 27.5 MCHC 32.8 RDW 12.9 Plt Count 174 MPV 9.2 Absolute Neuts (auto) 2.2 Neutrophils % 54.8 Lymphocytes % 30.1 Monocytes % 8.5 Eosinophils % 6.1 H Basophils % 0.5 Sodium 140 Potassium 3.9 Chloride 106 Carbon Dioxide 28 Anion Gap 7 L BUN 8.4 Creatinine 0.7 Est GFR (CKD-EPI)AfAm 107.62 Est GFR (CKD-EPI)NonAf 92.86 Random Glucose 119 H Calcium 8.2 L Magnesium 2.2 Total Bilirubin 0.9 AST 19 ALT 28 Alkaline Phosphatase 56 Total Protein 6.2 L Albumin 3.2 L Active Medications Generic Name Dose Route Start Last Admin Trade Name Freq PRN Reason Stop Dose Admin Acetaminophen/Butalbital/Caffeine 1 tablet 08/19/18 14:22 08/19/18 14:27 Fioricet - PO 1 tablet Q4H PRN Administration HEADACHE Enoxaparin Sodium 40 mg 08/19/18 11:45 08/20/18 09:13 Lovenox - SQ Not Given DAILY PAPI Sodium Chloride 1,000 mls @ 75 mls/hr 08/18/18 21:12 08/20/18 12:09 Normal Saline - IV 75 mls/hr ASDIR PAPI Administration Piperacillin Sod/Tazobactam 100 mls @ 200 mls/hr 08/19/18 15:00 08/20/18 06: 21 Sod 4.5 gm/ Dextrose IVPB 200 mls/hr Q8H PAPI Administration Protocol ASSESSMENT/PLAN: 63 year-old female with a PMH significant for diverticulosis and s/p multiple abdominal surgeries (cholecystectomy, appendectomy, ), admitted for acute diverticulitis. Acute sigmoid diverticulitis --seen on CT scan, no evidence of abscess formation --febrile 102.9 on admission, defervesced 08/18; no leukocytosis --continue Zosyn (day #2) --cultures negative to date --advance diet FEN Fluids: NS @ 75mL/hr Electrolytes: replete as indicated Nutrition: clears DVT prophylaxis: subq lovenox, oob, ambulation Dispo: continues to require inpatient care. Full code. Visit type - Emergency Visit Emergency Visit: Yes ED Registration Date: 08/18/18 Care time: The patient presented to the Emergency Department on the above date and was hospitalized for further evaluation of their emergent condition. - New Patient This patient is new to me today: No - Critical Care Critical Care patient: No
[2018-08-21] MEDS ORDERED: PIPERACILLIN/TAZOBACTAM 4.5 GM VIAL IVPB ONE (05:20)
[2018-08-21] MEDS ORDERED: DEXTROSE 5%-WATER 100 ML IVPB ONE (05:20)
[2018-08-21] MEDS: PIPERACILLIN/TAZOB 4.5 GM 4.5 GM in DEXTROSE 5%-WATER 100 ML IVPB SCH (06:07)
[2018-08-21 09:35] VITALS: BP 134/80; PULSE 64; TEMP 98.7
[2018-08-21] MEDS: ENOXAPARIN NA (PORCINE) 40 MG/0.4 ML DISP.SYRIN SQ SCH (09:35)
--- NOTE | 2018-08-21 12:16 | DS ---
Physical Examination Vital Signs: Vital Signs Temperature 98.7 F 08/21/18 09:35 Pulse Rate 64 08/21/18 09:35 Respiratory Rate 16 08/21/18 09:35 Blood Pressure 134/80 08/21/18 09:35 O2 Sat by Pulse Oximetry (%) 97 08/21/18 04:00 Findings/Remarks: No complaints on the day of discharge. Tolerates oral intake. Constitutional: Yes: Well Nourished, No Distress, Calm Eyes: Yes: Conjunctiva Clear, PERRL HENT: Yes: Atraumatic, Normocephalic Neck: Yes: Supple, Trachea Midline Cardiovascular: Yes: Regular Rate and Rhythm Respiratory: Yes: Regular, CTA Bilaterally Gastrointestinal: Yes: WNL, Normal Bowel Sounds, Soft ...Rectal Exam: Yes: Deferred Breast(s): Yes: WNL Musculoskeletal: Yes: WNL Extremities: Yes: WNL Edema: No Peripheral Pulses WNL: Yes Peripheral Pulses: Left Radial: 2+, Right Radial: 2+, Left Doralis Pedis: 2+, Right Dorsalis Pedis: 2+ Integumentary: Yes: WNL Wound/Incision: Yes: Clean/Dry Neurological: Yes: Alert, Oriented ...Motor Strength: WNL Psychiatric: Yes: Alert, Oriented Labs: CBC, BMP 08/20/18 07:21 08/20/18 07:21 Discharge Summary Reason For Visit: DIVERTICULITIS Current Active Problems Abdominal pain in female (Acute) Acute diverticulitis of intestine (Acute) Fever and chills (Acute) Sigmoid diverticulitis (Acute) Procedures: Principal: CXR 08/18/2018. Impression: No acute chest pathology. Reported By: Tam Adams MD. . CT abd and pelvis w/ contrast 08/18/2018. IMPRESSION: 1. Diffuse fatty infiltration of the liver. 2. Slightly irregular right renal cyst. Sonographic follow-up recommended. 3. Findings consistent with acute sigmoid diverticulitis without abscess formation. Clinical correlation and follow-up recommended. Please see above discussion. Reported By: Ricardo Posada MD 08/19/18 1042 Hospital Course: This is a 63 year old female with a past medical history of diverticulosis who presents to the emergency department with 3 days of lower abdominal pain described as sharp. Patient reported abdominal pain was worse during bowel movements. Patient also reports loose stools and states her last bowel movement was an hour prior to arrival to ED. She reports she had a fever of 104.7 last night, where it decreased to 102.9 earlier today. She also reports mild nausea when she smells greasy food. Patient reports taking 3 advils with slight relief of present symptoms. She denied chest pain, shortness of breath, headache, dizziness, vomiting, hematochezia and constipation. UA was negative. She has tachycardia and BP is slightly elevated. CT scan of abdomen demonstrataed acute diverticulitis. She was given a dose of IV Tylenol which improved her abdominal pain and IV zosyn. She was managed with IVF while remaining NPO. On 08/20, she was transitioned to oral diet, which was well tolerated. On 08/21, she IV zosyn changed to Augmentin and patient discharged home with primary care follow up in order to have future referral for outpt colonoscopy. Condition: Good - Instructions Diet, Activity, Other Instructions: PRIMARY CARE APPOINTMENT WITH DR. ETIENNE August 9:30AM - PATIENT EDUCATION: Diverticulosis is a condition in which small, bulging pouches (diverticuli) form inside the lower part of the intestine, usually in the colon. Constipation and straining during bowel movements can worsen the condition. A diet rich in fiber can help keep stools soft and prevent inflammation. Diverticulitis occurs when the pouches in the colon become infected or inflamed. Dietary changes can help the colon heal. Fiber is an important part of the diet for patients with diverticulosis. A high- fiber diet softens and gives bulk to the stool, allowing it to pass quickly and easily. Diet for Diverticulosis Eat a high-fiber diet when you have diverticulosis. Fiber softens the stool and helps prevent constipation. It also can help decrease pressure in the colon and help prevent flare-ups of diverticulitis. High-fiber foods include: Beans and legumes Bran, whole wheat bread and whole grain cereals such as oatmeal Brown and wild rice Fruits such as apples, bananas and pears Vegetables such as broccoli, carrots, corn and squash Whole wheat pasta If you currently don't have a diet high in fiber, you should add fiber gradually. This helps avoid bloating and abdominal discomfort. The target is to eat 25 to 30 grams of fiber daily. Drink at least 8 cups of fluid daily. Fluid will help soften your stool. Exercise also promotes bowel movement and helps prevent constipation. When the colon is not inflamed, eat popcorn, nuts and seeds as tolerated. Diet for Diverticulitis During flare ups of diverticulitis, follow a clear liquid diet. Your doctor will let you know when to progress from clear liquids to low fiber solids and then back to your normal diet. A clear liquid diet means no solid foods. Juices should have no pulp. During the clear liquid diet, you may consume: Broth Clear juices such as apple, cranberry and grape. (Avoid orange juice) Jell-O Popsicles When you're able to eat solid food, choose low fiber foods while healing. Low fiber foods include: Canned or cooked fruit without seeds or skin, such as applesauce and melon Canned or well cooked vegetables without seeds and skin Dairy products such as cheese, milk and yogurt Eggs Low-fiber cereal Meat that is ground or tender and well cooked Pasta White bread and white rice After symptoms improve, usually within two to four days, you may add 5 to 15 grams of fiber a day back into your diet. Resume your high fiber diet when you no longer have symptoms. Disposition: HOME - Home Medications Comprehensive Discharge Medication List: Ambulatory Orders Amoxicillin/Potassium Clav [Augmentin 875-125 Tablet] 1 each PO BID 7 Days #14 tablet 08/21/18 This patient is new to me today: Yes Date on this admission: 08/21/18 Emergency Visit: Yes ED Registration Date: 08/18/18 Care time: The patient presented to the Emergency Department on the above date and was hospitalized for further evaluation of their emergent condition. Critical Care patient: No - Discharge Referral Referred to [facility] No
[2018-08-21] MEDS ORDERED: AMOX TR/POT CLAV 875MG/125MG TABLETS (FP) PO SCH (17:30)
== END 2018-08-21 13:04 | disposition home or self-care (01) | DRG 392 ==
LOC: FER 14:30 → FM/S 18:23
PROVIDERS: ADMIT Internal Medicine; ATTEND Nurse Practitioner Family
DX: K57.32 Diverticulitis of large intestine without perforation or abscess without bleeding (principal); E66.9 Obesity, unspecified; R50.9 Fever, unspecified; Z68.31 Body mass index [BMI] 31.0-31.9, adult
CPT/HCPCS: 36415; 71045-TC-FY; 74177-TC; 80048; 80053; 81003; 82550; 83605; 83735; 84484; 85025; 85027; 85610; 87040; 87086; 93005; 99285-25; J0131; J7030

== ENCOUNTER 2020-03-07 13:29 | Emergency (ER) | payer BC ==
[2020-03-07] MEDS ORDERED: HIV POST EXPOSURE PROPHYLAXIS KIT PO ONE (14:46)
[2020-03-07] MEDS ORDERED: RALTEGRAVIR POTASSIUM 400 MG TAB PO ONE (14:49)
[2020-03-07] MEDS ORDERED: EMTRICITABINE 200MG/TENOFOVIR 300MG PO SCH (15:00)
[2020-03-07 15:46] VITALS: BP 158/96; PULSE 89; TEMP 99.3; BMI 29.9
== END 2020-03-07 15:30 | disposition home or self-care (01) ==
LOC: FER 13:29
DX: S61.439A Puncture wound without foreign body of unspecified hand, initial encounter (principal); W46.1XXA Contact with contaminated hypodermic needle, initial encounter
CPT/HCPCS: 99284-25